=== PATIENT | female | born 1970 | race Hispanic/Latino ===

== ENCOUNTER 2018-05-23 11:38 | Day surgery (SDC) | payer BC ==
[~2018-05-23 11:38] MED LIST: IOPIDINE ONE; MYDRIACYL ONE; NEOFRIN ONE
[2018-05-23] MEDS ORDERED: MYDRIACYL OD ONE (11:51)
[2018-05-23] MEDS ORDERED: IOPIDINE OD ONE (11:51)
[2018-05-23] MEDS ORDERED: NEOFRIN OD ONE (11:51)
[2018-05-23 13:40] VITALS: BP 107/73
== END 2018-05-23 11:39 | disposition home or self-care (01) ==
LOC: OR 11:38
PROVIDERS: ATTEND Specialist
DX: H26.491 Other secondary cataract, right eye (principal); G47.30 Sleep apnea, unspecified; K21.9 Gastro-esophageal reflux disease without esophagitis; M19.90 Unspecified osteoarthritis, unspecified site; F41.9 Anxiety disorder, unspecified; M32.9 Systemic lupus erythematosus, unspecified; Z88.1 Allergy status to other antibiotic agents; Z88.0 Allergy status to penicillin; Z88.2 Allergy status to sulfonamides; Z88.8 Allergy status to other drugs, medicaments and biological substances; Z91.09 Other allergy status, other than to drugs and biological substances; Z98.42 Cataract extraction status, left eye; Z98.41 Cataract extraction status, right eye; Z90.49 Acquired absence of other specified parts of digestive tract; Z96.653 Presence of artificial knee joint, bilateral; Z98.891 History of uterine scar from previous surgery; Z98.890 Other specified postprocedural states